=== PATIENT | male | born 1960 | race Caucasian/White ===

== ENCOUNTER 2017-03-22 14:01 | Emergency (ER) | payer OTHER ==
[~2017-03-22] VITALS: Ht 167.6 cm; Wt 105.0 kg
[~2017-03-22 14:01] MED LIST changes: -*morphine SULFATE 8 MG/ML PERIprocedure ONLY ONE; -ACETAMINOPHEN 1000 MG/100 ML 100 ML IV ONE; -ACETAMINOPHEN/HYDROcodone 325 MG/7.5 MG TAB PO PRN; -CHLORHEXIDINE GLUCONATE 2 % 1 PACK (2 CLOTHS) TOPICAL PRN; -CHLORHEXIDINE GLUCONATE 4% SOLN 120 ML BTL TOPICAL SCH; -DEXAMETHASONE SOD PHOS 4 MG/ML VIAL IV ONE; -DO NOT ADM ANY ANTICOAGULANT DRUGS PRN; -FAMOTIDINE 20 MG/2 ML VIAL ONE; -GENTAMICIN SULFATE 80 MG/2 ML VIAL ONE; -INSULIN HUMAN REGULAR 1,000 UNITS/10 ML VIAL SQ PRN; -LACTATED RINGER'S 1000 ML IV PRN; -LIDOCAINE HCL 1% PF 5 ML AMPULE OTHER ONE; -METOPROLOL TARTRATE 25 MG TAB PO PRN; -MIDAZOLAM HCL 2 MG/2 ML VIAL IV ONE; -MORPHINE SULFATE 4 MG/ML INJ IV PUSH PRN; -ONDANSETRON HCL 4 MG/2 ML VIAL IV PUSH ONE; -ONDANSETRON HCL 4 MG/2 ML VIAL IVP PRN; -PHENYLEPH/NS 1000 MCG/10 ML SYR IV ONE; -POVIDONE IODINE 5% (ANTISEPSIS KIT) 4 APPLICATIONS EACH NARE PRN; -PROPOFOL 200 MG/20 ML AMP IV ONE; -Post-op Orders (for Pharmacy) MISC XX ONE; -SODIUM CHLORID 0.9% 500 ML IV PRN; -VANCOMYCIN 1000 MG/NS 250 ML (for <70 kg) IV SCH; -ceFAZolin 2 GM PREMIX 50 ML IV SCH; -ePHEDrine/NS 25 MG/5 ML SYR IV ONE
[2017-03-22 14:03] VITALS: BP 131/81; PULSE 109; RESP 14; TEMP 99; O2SAT 98
--- NOTE | 2017-03-22 15:00 | PD ---
HPI Chief Complaint: Bleeding Time Seen by Provider: 14:37 Travel History International Travel<30 days: No Contact w/Intl Traveler<30days: No Traveled to known affect area: No History of Present Illness HPI Patient comes in the emergency department with concerns or bleed from surgical site. Patient states he had surgery this morning is on Plavix. Patient states he has been bleeding since leaving the hospital earlier today. Patient reports his family was concerned secondary to bleeding through the splint. Patient denies any other complaints or concerns at this time. Denies anything making it better or worse. PFSH Past Medical History Hx Anticoagulant Therapy: Yes Cancer: No Cardiovascular Problems: Yes (afib) Cerebrovascular Accident: Yes Diabetes: No Endocrine: No Genitourinary: No Hepatitis: No Hiatal Hernia: Yes Immune Disorder: No Musculoskeletal: No Neurologic: Yes (stroke 2016) Respiratory: No Thyroid Disease: No Past Surgical History Abdominal Surgery: Yes AICD: No Cardiac Surgery: No Endocrine Surgery: No Genitourinary Surgery: No Gynecologic Surgery: No Joint Replacement: No Pacemaker: No Thoracic Surgery: No Social History Alcohol Use: Yes Tobacco Use: No Substance Use: No Allergies-Medications (Allergen,Severity, Reaction): Coded Allergies: No Known Allergies (Unverified , 03/22/17) Reported Meds & Prescriptions Reported Meds & Active Scripts Active Deep Gap (Hydrocodone-Acetaminophen) 7.5-325 mg Tab 1 Tab PO Q4H PRN Reported Hydrochlorothiazide 12.5 Mg Tab 12.5 Mg PO DAILY Hydrocodone-Acetaminophen 10-325 mg Tab 1 Tab PO Q4H PRN Aspirin 81 Mg Chew 81 Mg CHEW DAILY Omeprazole 40 Mg Cap 40 Mg PO DAILY Lexapro (Escitalopram Oxalate) 10 Mg Tab 10 Mg PO DAILY Cartia Xt (Diltiazem ER 24 HR) 120 Mg Caper 120 Mg PO DAILY Atorvastatin (Atorvastatin Calcium) 40 Mg Tab 40 Mg PO HS Plavix (Clopidogrel Bisulfate) 75 Mg Tab 75 Mg PO DAILY Review of Systems Except as stated in HPI: all other systems reviewed are Neg Physical Exam Narrative GENERAL: Well-developed, overly nourished, in no acute distress, and non-ill appearing. SKIN: Sutures in place left ankle. Sutures are dry clean intact. There is no active bleeding noted at this time. Dressing is noted to be saturated with blood. HEAD: Atraumatic. Normocephalic. EYES: Pupils equal and round. EOMI. No scleral icterus. No injection or drainage. ENT: No nasal bleeding or discharge. Mucous membranes pink and moist. NECK: Trachea midline. Supple. No nuclear rigidity. CARDIOVASCULAR: Dorsal pulses 2+ and intact. Capillary refill less than 2 seconds. RESPIRATORY: No accessory muscle use. No respiratory distress. MUSCULOSKELETAL: No obvious deformities. No clubbing. No cyanosis. No edema. NEUROLOGICAL: Awake and alert. No obvious cranial nerve deficits. Motor grossly within normal limits. Normal speech. PSYCHIATRIC: Appropriate mood and affect; insight and judgment normal. Data Data Last Documented VS Vital Signs Date Time Temp Pulse Resp B/P (MAP) Pulse Ox O2 Delivery O2 Flow Rate FiO2 03/22/17 14:03 99.0 109 14 131/81 (98) 98 Orders Orders Fiberglass Short Leg Splint Ad (03/22/17 ) Fiberglass Sugartong Sp Ad Sl (03/22/17 ) Wound Care (03/22/17 15:43) Splint Or Brace Apply/Monitor (03/22/17 15:43) Ed Discharge Order (03/22/17 15:57) MDM Medical Decision Making Medical Screen Exam Complete: Yes Emergency Medical Condition: Yes Differential Diagnosis Postop constipation, uncontrolled bleeding, wound check, Narrative Course Patient was seen and examined. Splint was removed. Wound was evaluated with no active bleeding. Patient was monitored to the emergency department for approximately an hour with only scant amount of bleeding noted. Discussed patient with orthopedic, who recommended redressing it and re-splinting of follow-up as previously instructed. Discussed patient with Dr. Mercer prior to discharge, who is in agreement with plan of care and disposition. Due to the minimal amount of bleeding was redressed using Xeroform 4 x 4's along with having splint replaced by [employer] with the RNs assistance. Patient in no obvious distress upon re-evaluation. Any questions/concerns in reference to patient diagnosis/condition discussed and clarified prior to patient's discharge. Reinforced sheer importance of close follow up with patient's surgeon as scheduled. Instructed patient to return to ED immediately, if symptoms return/worsen. Patient showed understanding of above instructions. Further instructions and recommendations were detailed in discharge paperwork. Patient left without difficulty out of ED at discharge. Physician Communication Physician Communication [id number] Fisher, orthopedic to perform the surgery earlier today, through the OR nurse recommends after finish watching him to have the wound redressed with Xeroform, 4 x 4's, and have splint replaced by [employer]. Does not recommend doing anything else at this time. Diagnosis Primary Impression: Bleeding from wound Additional Instructions: Follow-up with your orthopedic surgeon as previously instructed. Follow all previous discharge instructions from earlier today. Return to the emergency department if symptoms get worse. Disposition: 01 DISCHARGE HOME Condition: Stable Juan Mcdonald Mar 22, 2017 15:00
== END 2017-03-22 16:53 | disposition home or self-care (01) ==
LOC: NEPC 14:01
DX: M96.830 Postprocedural hemorrhage of a musculoskeletal structure following a musculoskeletal system procedure (principal)
CPT/HCPCS: 29125; 99281

== ENCOUNTER → 2017-03-22 | Day surgery (SDC) | payer OTHER ==
[~2017-03-22] VITALS: Ht 167.6 cm; Wt 102.0 kg
[~2017-03-22] MED LIST: *morphine SULFATE 8 MG/ML PERIprocedure ONLY ONE; ACETAMINOPHEN 1000 MG/100 ML 100 ML IV ONE; ACETAMINOPHEN/HYDROcodone 325 MG/7.5 MG TAB PO PRN; ASPI81CH CHEW; ATOR40TA16 PO; CART120C PO; CHLORHEXIDINE GLUCONATE 2 % 1 PACK (2 CLOTHS) TOPICAL PRN; CHLORHEXIDINE GLUCONATE 4% SOLN 120 ML BTL TOPICAL SCH; DEXAMETHASONE SOD PHOS 4 MG/ML VIAL IV ONE; DO NOT ADM ANY ANTICOAGULANT DRUGS PRN; FAMOTIDINE 20 MG/2 ML VIAL ONE; GENTAMICIN SULFATE 80 MG/2 ML VIAL ONE; HYDR-3288 PO; HYDR-3583 PO; HYDR12.56 PO; INSULIN HUMAN REGULAR 1,000 UNITS/10 ML VIAL SQ PRN; LACTATED RINGER'S 1000 ML IV PRN; LEXA10TA PO; LIDOCAINE HCL 1% PF 5 ML AMPULE OTHER ONE; METOPROLOL TARTRATE 25 MG TAB PO PRN; MIDAZOLAM HCL 2 MG/2 ML VIAL IV ONE; MORPHINE SULFATE 4 MG/ML INJ IV PUSH PRN; OMEP40CA2 PO; ONDANSETRON HCL 4 MG/2 ML VIAL IV PUSH ONE; ONDANSETRON HCL 4 MG/2 ML VIAL IVP PRN; PHENYLEPH/NS 1000 MCG/10 ML SYR IV ONE; PLAV75TA29 PO; POVIDONE IODINE 5% (ANTISEPSIS KIT) 4 APPLICATIONS EACH NARE PRN; PROPOFOL 200 MG/20 ML AMP IV ONE; Post-op Orders (for Pharmacy) MISC XX ONE; SODIUM CHLORID 0.9% 500 ML IV PRN; VANCOMYCIN 1000 MG/NS 250 ML (for <70 kg) IV SCH; ceFAZolin 2 GM PREMIX 50 ML IV SCH; ePHEDrine/NS 25 MG/5 ML SYR IV ONE
--- NOTE | 2017-03-22 08:43 | PD.OP ---
cc: Shane Velásquez MD Operative Report Date of Surgery: Mar 22, 2017 Preoperative Diagnosis: Displaced left fibular fracture Postoperative Diagnosis: Procedure: Open reduction internal fixation left distal fibula Anesthesia: Gen. Surgeon: Shane Velásquez Transportation Operations Manager(s): Christopher Ryan PA-C The surgical procedure was assisted by my physician assistant office manager. My P.A. presence was necessary throughout this case for the manipulation and positioning of the surgical extremity. My P.A. was assisting me throughout the duration of this procedure. The skill set of a physician assistant office manager was medically necessary to complete this procedure. During the surgical case the surgical processor was working at the back table and the physician assistant office manager was directly assisting me. Operation and Findings: Implants used : ITS Patient was seen and evaluated preoperatively and found to have a displaced left ankle fracture. Patient was initially treated nonoperatively but was not showing signs of healing and had increased displacement of fibular fracture. Informed consent was obtained after a detailed discussion of risk and benefits of surgery. The operative site was marked. Patient was brought to the OR, placed on the OR table, and given IV sedation and general endotracheal anesthesia. IV antibiotics were given preoperatively. A timeout procedure was performed. The operative leg was prepped with alcohol followed by Hibiclens and draped in the usual sterile fashion. Attention was turned towards the distal fibula. A four-inch incision was made over the distal fibula. The subcutaneous tissue was dissected with Bovie. The fracture site was visualized. The fracture site was cleaned with curets. The fracture was now reduced. The fracture keyed into anatomic alignment. K-wires were used to h old provisional fixation. A plate was selected and contoured to fit the distal fibula. The plate was provisionally held to bone with K- wires. 3.5 cortical screws were used to compress the plate to bone. Multiple screws were placed above and below the fracture. Multiple locking screws were placed distally. Next, attention was turned to the syndesmosis. The syndesmosis was stressed. There was no widening of the syndesmosis with external rotation of the ankle. Incisions were thoroughly irrigated. The subcutaneous tissue was closed with 3- 0 Vicryl and the skin was closed with 3-0 nylon. Sterile dressings were applied. A well molded well-padded splint was applied. The patient was transferred to Recovery in stable condition. Needle and sponge counts were correct. Shane Velásquez MD Mar 22, 2017 08:43
--- NOTE | 2017-03-22 08:54 | EKG ---
Date Performed: 03/22/2017 Time Performed: 06:46:07 PTAGE: 56 years EKG: Sinus rhythm NORMAL ECG NO PREVIOUS TRACING DOCTOR: Geoff Cornelius Interpretating Date/Time 03/22/2017 08:53:35
[2017-03-22 10:50] VITALS: BP 122/81; PULSE 81; RESP 18; TEMP 97.9; O2SAT 95
--- NOTE | 2017-03-22 12:00 | RADRPT ---
EXAM DATE/TIME: 03/22/2017 08:32 [facility] COMPARISON: No previous studies available for comparison. INDICATIONS : Orif left fibula. MEDICAL HISTORY : None. SURGICAL HISTORY : None. ENCOUNTER: Initial ACUITY: 1 day PAIN SCORE: Non-responsive. LOCATION: Left Tib fib. FINDINGS: Plate with screws is seen bridging the distal fibular fracture. Alignment is anatomic. CONCLUSION: Anatomic alignment. Kang Escalera MD FACR on March 22, 2017 at 11:58 Board Certified Radiologist. This report was verified electronically.
== END | disposition home or self-care (01) ==
LOC: HSDC 05:09
PROVIDERS: ATTEND Orthopaedic Surgery Orthopaedic Trauma
DX: S82.822A Torus fracture of lower end of left fibula, initial encounter for closed fracture (principal); I10 Essential (primary) hypertension
CPT/HCPCS: 01480; 27792; 73600; 76000; 93005; C1713; J0131; J0690; J1100; J1580; J2250; J2270; J2370; J2405; J3010; J3370; J7050; J7120